=== PATIENT | female | born 1945 | race Caucasian/White ===

== ENCOUNTER 2025-04-12 08:44 | Day surgery (SDC) | payer OTHER, SELFPAY ==
[2025-04-12] VITALS (18 sets, daily range): BP systolic 74–113; BP diastolic 37–75
[2025-04-12] MEDS: LOW STRENGTH ASPIRIN 324 MG PO (09:23)
--- NOTE | 2025-04-12 09:52 | CONSULT.STRU ---
Consultation
-
Date/Time Consultation Requested: 04/12/2025
Date/Time Consultation Performed: 04/12/2025
Requesting Provider: Robert Ly MD
Performing Provider: Barby Mendoza DNP, CRNP
Reason for Consultation: /MR/ TAVR/ SAVR+ MVR
Patient History
Physicians
Family Physician: Isaiah Dvaies MD
Outpatient Check Processing Clerk: Kristian Mejia MD
Primary Check Processing Clerk: Kristian Mejia MD
History of Present Illness
Ms. Velasquez is a very pleasant 79 yof with a past medical history significant for aortic stenosis, HTN, AFIB. Her echocardiogram from 03/28/2025 is notable for EF: 58%, AV P/M 55/31, SHADI 0.3, DI 0.14, pk ruperto 3.7, no AI, moderate to severe MR,
moderate-severe TR, PAP 52. Her cardiac catheterization from 04/12/2025 demonstrated Normal coronary arteries. Significant aortic stenosis in the setting of known combined aortic and mitral valve disease. From a symptomatology standpoint, patient
describes HILLMAN most notifiable with climbing stairs, she also describes presyncope and lightheadedness . Discussed the pathophysiology and treatment options of and MR including SAVR, TAVR, multiple valve surgery . Explained the evaluation process
comprising of lab work, CT scan, CT surgical consult, dental clearance, and a heart team discussion. TAVR booklet, appointments, prescriptions, and contact information given to patient. Allowed for and answered questions to the best of my ability.
Past Medical History
Past Medical History: Atrial Fib, HTN and Valvular Disease (Aortic Stenosis, moderate-severe MR, Moderate- severe TR)
Past Surgical History
Past Surgical History: Appendectomy, and Orthopedic (TKR)
Dental History
[facility] dental-- Patient will make an appointment
Family History
Mother: N/A
Father: N/A
Social History
Alcohol: Occasional
Drug: None
Tobacco: Non-Smoker
Personal:
Living: With Spouse
Allergies
Allergy/AdvReac Type Severity Reaction Status Date / Time
lisinopril Allergy Unknown patient Verified 04/12/25 09:10
cant recall
Penicillins Allergy Hives Verified 04/12/25 09:10
Home Medications
�Medication �Instructions �Recorded �Confirmed �Type
apixaban 5 mg tablet (Eliquis) 5 mg PO BID 04/12/25 04/12/25 History
atorvastatin 10 mg tablet 10 mg PO QPM 04/12/25 04/12/25 History
furosemide 40 mg tablet 40 mg PO DAILY 04/12/25 04/12/25 History
metoprolol succinate 50 mg 50 mg PO BID 04/12/25 04/12/25 History
tablet,extended release 24 hr
STS%
STS %: AVR: 4.2% MVR: 5.4%
Review of Systems
-
History Source: Patient
General: Reports Fatigue
HEENT: Reports No Symptoms
Respiratory: Reports SOB and HILLMAN
Cardiac: Reports No Symptoms
Abdomen/GI: Reports No Symptoms
: Reports No Symptoms
Musculoskeletal: Reports Joint Pain
Skin: Reports No Symptoms
Neurological: Reports No Symptoms
Vascular: Reports No Symptoms
Physical Exam
Vital Signs
Temp 97.8 F 04/12/25 08:49
Temp route: Oral 04/12/25 08:49
Pulse 87 04/12/25 08:49
Resp Rate 24 04/12/25 08:49
Blood pressure 113/54 04/12/25 08:49
Blood pressure extremity used: Left upper arm 04/12/25 08:49
Position: Lying 04/12/25 08:49
SaO2 98 04/12/25 08:49
Oxygen Mode of Delivery Room air 04/12/25 08:49
Can the patient verbally communicate their pain? Yes 04/12/25 08:49
Diagnostic Studies
Procedure Type:�Isolated AVR
Perioperative Outcome Estimate %
Operative Mortality 4.2%
Morbidity & Mortality 10.7%
Stroke 0.877%
Renal Failure 2.21%
Reoperation 3.09%
Prolonged Ventilation 6.9%
Deep Sternal Wound Infection 0.063%
Long Hospital Stay (>14 days) 6.92%
Short Hospital Stay (<6 days)* 28.1%
Procedure Type:�Isolated MVR
Perioperative Outcome Estimate %
Operative Mortality 5.41%
Morbidity & Mortality 14.7%
Stroke 1.56%
Renal Failure 3.78%
Reoperation 3.5%
Prolonged Ventilation 9.37%
Deep Sternal Wound Infection 0.07%
Long Hospital Stay (>14 days) 10.4%
Short Hospital Stay (<6 days)* 17.9%
Exam
General: Well Developed, Well Nourished, No Apparent Distress and Comfortable
HEENT: Normocephalic
Neck: Trachea Midline
Respiratory: Clear (Anteriorly)
Cardiac: Murmur (IV/ HSM)
GI: Soft, Non Tender, Non Distended and Normal Bowel Sounds
Rectal: Deferred by Provider
Skin: Warm and Dry
Neuro: Awake, Alert, Oriented and AO x 3
Psych: Calm
Assessment / Plan
-
Aortic Stenosis
Continue TAVR evaluation
Trend Creatinine after each contrast administration
TAVR CT scan
CT surgical consult
Frailty testing and [id number] at surgical consult
Will discuss timing to hold Eliquis
Dental clearance-- Dentures
Heart team discussion
Data Reviewed
-
Mechanical Engineering Specialist: Report Reviewed by me and Discussed with Physician
Echo: Report Reviewed by me and Discussed with Physician
Labs: Labs Reviewed by me
Old Records: Reviewed
--- NOTE | 2025-04-12 13:13 | ITS.CL.CATH ---
Customer Service Manager - Catheterization
Cardiac Catheterization
Procedure Report:
LEFT HEART CATHETERIZATION
Date of Procedure: April 12, 2025
Procedures performed:
1: Coronary angiography
2: Left ventricular hemodynamic assessment
Primary Care Physician: Dr. Isaiah Carmichael
Primary Winding Lathe Operator: Dr. Kristian Mejia
INDICATION: The patient is an 79-year-old woman who presents with symptomatic aortic stenosis for diagnostic coronary angiography in preparation for aortic valve intervention. Echo shows preserved LV systolic function but also suggests moderate to
severe mitral digitation as well. She also has paroxysmal atrial fibrillation and is on Eliquis which was held for this procedure.
ACCESS: The patient was prepped and draped in usual sterile fashion. A 5 Telugu sheath was placed in the right radial artery using the Seldinger over the wire technique.
HEMODYNAMIC FINDINGS (mmHg):
LV(s/d,EDP): 141/6, 16
Ao(s/d,m): 113/64, 72
Difficult to assess pullback gradients due to ectopy. My best estimate of a pullback gradient is 30 mmHg.
ANGIOGRAPHIC FINDINGS:
Single-plane Left Ventriculography in [facility]RO[facility]ER Projection: Not done. Of note, there is dense mitral annular calcification.
Coronary Angiography:
Dominance: Left
Left Main: Normal
Left Anterior Descending: The left anterior descending artery is a medium to large caliber vessel that gives rise to 1 medium caliber diagonal branch. These vessels are tortuous but are widely patent with no focal disease and normal flow.
Left Circumflex: Large-caliber dominant vessel that gives rise to 3 major obtuse marginal branches and terminates in a medium caliber left-sided posterior descending artery. These vessels are widely patent and free of focal obstructive disease.
Right Coronary: Small nondominant vessel that is angiographically normal.
Fluoroscopy Time (min): 4.4
Radiation Dose (mGy): 196
DAP (Gy.cm2): 12
Closure device: None. A TR band was applied for hemostasis at the right wrist.
Complications: None.
ASSESSMENT:
1: Normal coronary arteries.
2: Significant aortic stenosis in the setting of known combined aortic and mitral valve disease.
CONCLUSIONS and RECOMMENDATIONS:
1: Proceed with [place] valve team evaluation. For aortic valve gradients are not superhigh however in reviewing the echo images there is clearly heavy calcification of the valve and certain echo features consistent with severe aortic stenosis.
That said, the mitral valve is also clearly markedly thickened calcified and has a significant amount of central incompetence. May need a RALPH to better define.
2: Resume Eliquis for atrial fibrillation tomorrow.
Robert Ly M.D.
Copy to: Dr. Isaiah Carmichael
== END 2025-04-12 16:15 | disposition home or self-care (01) ==
LOC: CATH 08:44
PROVIDERS: ATTENDING PHYSICIAN Internal Medicine Cardiovascular Disease; FAMILY PHYSICIAN Family Medicine
DX: I08.3 Combined rheumatic disorders of mitral, aortic and tricuspid valves (principal); I48.0 Paroxysmal atrial fibrillation; I10 Essential (primary) hypertension; Z79.899 Other long term (current) drug therapy; Z88.0 Allergy status to penicillin; Z88.8 Allergy status to other drugs, medicaments and biological substances; Z90.49 Acquired absence of other specified parts of digestive tract; Z79.01 Long term (current) use of anticoagulants
CPT/HCPCS: 93458; C1769; C1894; Q9967

== ENCOUNTER → 2025-04-25 09:38 | Outpatient (REF) | payer OTHER, SELFPAY | LOC: RAD 09:38 | PROVIDERS: ATTENDING PHYSICIAN Nurse Practitioner Acute Care; FAMILY PHYSICIAN Family Medicine | DX: I35.0 Nonrheumatic aortic (valve) stenosis (principal) | CPT/HCPCS: 74174; 75572; Q9967 ==

== ENCOUNTER 2025-05-03 09:06 | Day surgery (SDC) | payer OTHER, SELFPAY | END 2025-05-03 11:46 | disposition home or self-care (01) | LOC: CATH 09:06 | PROVIDERS: ATTENDING PHYSICIAN Internal Medicine; FAMILY PHYSICIAN Family Medicine; OTHER PHYSICIAN Internal Medicine Cardiovascular Disease | DX: I08.3 Combined rheumatic disorders of mitral, aortic and tricuspid valves (principal); I48.91 Unspecified atrial fibrillation; I08.8 Other rheumatic multiple valve diseases; E78.5 Hyperlipidemia, unspecified; I10 Essential (primary) hypertension; Z79.01 Long term (current) use of anticoagulants; Z79.899 Other long term (current) drug therapy; Z88.0 Allergy status to penicillin | CPT/HCPCS: 93312; 93320; 93325 ==